=== PATIENT | male | born 1930 | race Caucasian/White ===

== ENCOUNTER → 2017-03-14 | Outpatient (CLI) | payer MEDICARE, OTHER ==
[~2017-03-14] MED LIST: ASPI-1181 PO; CANA300T PO; CLOP75TA32 PO; LISI10TA7 PO; NEBI5TAB8 PO; PRAV20TA4 PO; SITA100T12 PO
== END | disposition home or self-care (01) ==
LOC: RAH 11:43
PROVIDERS: ATTEND Family Medicine
DX: I10 Essential (primary) hypertension (principal); Z95.2 Presence of prosthetic heart valve
CPT/HCPCS: 71046

== ENCOUNTER → 2018-01-01 | Outpatient (CLI) | payer OTHER | END | disposition home or self-care (01) | LOC: SHCH 10:07 | PROVIDERS: ATTEND Internal Medicine Cardiovascular Disease | DX: I10 Essential (primary) hypertension (principal); Z95.2 Presence of prosthetic heart valve; Z95.1 Presence of aortocoronary bypass graft; Z95.0 Presence of cardiac pacemaker | CPT/HCPCS: 93306 ==

== ENCOUNTER → 2018-01-16 | Outpatient (CLI) | payer OTHER | END | disposition home or self-care (01) | LOC: SHCH 10:08 | PROVIDERS: ATTEND Internal Medicine Cardiovascular Disease | DX: I65.23 Occlusion and stenosis of bilateral carotid arteries (principal); I25.10 Atherosclerotic heart disease of native coronary artery without angina pectoris; Z72.89 Other problems related to lifestyle | CPT/HCPCS: 93880 ==

== ENCOUNTER → 2019-03-11 | Outpatient (CLI) | payer OTHER | END | disposition home or self-care (01) | LOC: SHCH 07:48 | PROVIDERS: ATTEND Internal Medicine Cardiovascular Disease | DX: I35.0 Nonrheumatic aortic (valve) stenosis (principal); I65.23 Occlusion and stenosis of bilateral carotid arteries; I73.9 Peripheral vascular disease, unspecified; I10 Essential (primary) hypertension | CPT/HCPCS: 93306; 93880; 93925 ==

== ENCOUNTER 2019-08-24 15:35 | Inpatient (IN) | payer OTHER ==
[~2019-08-24] VITALS: Ht 177.8 cm; Wt 105.1 kg
[~2019-08-24 15:35] MED LIST changes: -ASPI-1181 PO; +ASPI-1443 PO
[2019-08-24 16:17] LABS: BASOPHILS % (AUTO) 0.5 % (0.0-5.0); EOSINOPHILS % (AUTO) 1.1 % (0.0-8.0); LYMPHOCYTES % (AUTO) 10.6 % (21.0-51.0); MEAN CORPUSCULAR HEMOGLOBIN 30.9 pg (27.0-33.0); MEAN CORPUSCULAR HGB CONC 31.2 g/dL (32.0-36.0); MEAN CORPUSCULAR VOLUME 98.9 fL (79-99); MONOCYTES % (AUTO) 9.1 % (3.0-13.0); NEUTROPHILS % (AUTO) 78.3 % (40.0-77.0); PLATELET COUNT (AUTO) 264 K/uL (130-400); RED BLOOD CELL COUNT(AUTO) 1.75 MIL/uL (4.50-6.20); WHITE BLOOD COUNT (AUTO) 10.9 K/uL (4.8-10.8)
[2019-08-24 16:28] LABS: CREATININE 2.6 mg/dL (0.5-1.5)
[2019-08-24 16:32] LABS: ALBUMIN 3.1 g/dL (3.5-5.0); BILIRUBIN,TOTAL 0.2 mg/dL (0.2-1.0); TOTAL PROTEIN, SERUM 6.1 g/dL (6.0-8.3)
[2019-08-24 16:38] LABS: HEMATOCRIT 17.3 % (42-54)
[2019-08-24 18:40] LABS: INR 1.05 (0.85-1.15); PARTIAL THROMBOPLASTIN TIME 23.1 SEC (26.3-35.5); PROTHROMBIN TIME 11.3 SEC (9.6-11.6)
[2019-08-24 19:21] LABS: % IRON SATURATION 5.1 % (30-44)
[2019-08-24 19:28] LABS: RETICULOCYTE % (AUTO) 4.85 % (0.42-2.23)
[2019-08-25] VITALS (8 sets, daily range): BP systolic 101–132; BP diastolic 40–66
[2019-08-25] MEDS: SODIUM CHLORIDE 0.9% 1000ML 1,000 ML IV SCH ×2 (00:53→22:07)
[2019-08-25] MEDS: FUROSEMIDE 10 MG/ML 2ML VIAL IVP SCH ×2 (00:53→04:00)
[2019-08-25] MEDS: FAMOTIDINE/PF 20 MG/2 ML VIAL IV SCH ×2 (00:56→22:07)
--- NOTE | 2019-08-25 00:57 | NUR ---
blood transfusion started to administer the 2nd bag of prbc with witness MORAIMA Barber. instructed pt to inform as soon as possible any untoward blood transfusion reaction such as difficulty breathing, congestion, chest pain, itchiness, rashes, etc. pt denied any dizziness, chest pain, headache nor difficulty of breathing nor any pain. close monitoring
--- NOTE | 2019-08-25 05:30 | NUR ---
COMPLETED BLOOD TRANSFUSION NO UNTOWARD BLOOD TRANSFUSION REACTION NOTED. PT DENIED ANY CHEST PAIN NOR SOB NOT ITCHINESS NOR RASHES NOR ANY OTHER PAIN
[2019-08-25] MEDS ORDERED: FUROSEMIDE 10 MG/ML 2ML VIAL ONE (06:13)
--- NOTE | 2019-08-25 07:00 | NUR ---
refused PATIENT REFUSED TO GET BLOOD DRAWN DESPITE THOROUGH EXPLANATION OF ITS IMPORTANCE TO KNOW THE EFFECTIVENESS OF 2 UNITS BLOOD TRANSFUSION. HOWEVER PT STIL REFUSED. PATIENT STARTED TO GET OUT OF BED FALL RISK PRECAUTION! PT REFUSED TO SIGN REFUSAL FORM IN REFUSING BLOOD DRAWN. INFORMED CHARGED NURSE JOALNTA ABOUT RISK FOR FALL FOR PATIENT, NON COMPLIANCE. INCOMING DAYSHIFT NURSE PAVEL STAYED FOR A WHILE INSIDE PATIENT'S ROOM.
[2019-08-25] MEDS ORDERED: NEBI5TAB8 PO (07:43)
--- NOTE | 2019-08-25 07:45 | NUR ---
REFUSED pt refused blood draw after blood transfusion.pt sitting on edge of bed ,cursing at staff and combative Addendum: 08/25/19 at 0825 by PAVEL BERG RN RN Amended: Links added.
[2019-08-25] MEDS ORDERED: TRAM50TA4 PO (07:48)
[2019-08-25] MEDS ORDERED: ASPI-1005 PO (07:51)
[2019-08-25] MEDS ORDERED: ACET-66 PO (07:51)
[2019-08-25] MEDS ORDERED: LEVO500T89 PO (07:58)
[2019-08-25 12:14] LABS: BASOPHILS % (AUTO) 0.5 % (0.0-5.0); EOSINOPHILS % (AUTO) 1.1 % (0.0-8.0); HEMATOCRIT 25.3 % (42-54); LYMPHOCYTES % (AUTO) 7.9 % (21.0-51.0); MEAN CORPUSCULAR HEMOGLOBIN 31.3 pg (27.0-33.0); MEAN CORPUSCULAR HGB CONC 33.2 g/dL (32.0-36.0); MEAN CORPUSCULAR VOLUME 94.4 fL (79-99); MONOCYTES % (AUTO) 8.4 % (3.0-13.0); NEUTROPHILS % (AUTO) 81.5 % (40.0-77.0); NUCLEATED RED BLOOD CELLS 0.3 % (0.0-0.19); PLATELET COUNT (AUTO) 288 K/uL (130-400); RED BLOOD CELL COUNT(AUTO) 2.68 MIL/uL (4.50-6.20); RED CELL DISTRIBUTION WIDTH 14.3 % (11.0-15.5); WHITE BLOOD COUNT (AUTO) 11.4 K/uL (4.8-10.8)
[2019-08-25 12:22] LABS: CREATININE 2.6 mg/dL (0.5-1.5); POTASSIUM 4.2 mmol/L (3.5-5.1)
[2019-08-25 12:23] LABS: INR 1.05 (0.85-1.15); PROTHROMBIN TIME 11.3 SEC (9.6-11.6)
--- NOTE | 2019-08-25 19:45 | NUR ---
CM SPOKE WITH PATIENT ABOUT DISCHARGE PLANNING STATES LIVES WITH SPOUSE, WHO IS '90 AND MEAN AND HAS TROUBLE WITH STAIRS' STATES USES A CANE, A WALKER, AND HAS TROUBLE GETTING AROUNF' STATES 3 STEP TO HOME, [facility]AES NO MONITOR TECHNICIAN OR PROVIDER SERVICES. PERSMIION TO CALL SPOUSE TO DISCUSS PLACMENT/REHAB, BUT STATES ONLY WNATS TO GO HOME CALL TO SPOUSE, CONFIRMED ALL THAT PATIENT TOLD CM EXCEPT THAT MOBILITY IS MUCH WORSEP ' I CAN'T GET HI IN THE CAR' AND THAT HE HAS MD APPOINTMENT HE CANNOT GET TO. OFFERED SNF, SPOUSE UPSET AND DECLINED. LALED LILLIAN AND SAID SHE WOULD THINK ABOUT IT. WILL FOLLOW UP IN AM Addendum: 08/25/19 at 1948 by LINDY GE RN CM Amended: Links added.
--- NOTE | 2019-08-25 21:04 | NUR ---
Pt agressive and combative. Informed Dr. Amado thru text with an order to give Geodon 10 mg IM now and starting tomorrow (08/26/19): Seroquel 50 mg po QPM.
[2019-08-25] MEDS ORDERED: ZIPRASIDONE MESYLATE 20 MG/VIAL IM SCH (21:15)
[2019-08-26] VITALS (25 sets, daily range): BP systolic 98–161; BP diastolic 45–69
[2019-08-26 05:33] LABS: BASOPHILS % (AUTO) 0.5 % (0.0-5.0); EOSINOPHILS % (AUTO) 1.8 % (0.0-8.0); HEMATOCRIT 24.4 % (42-54); LYMPHOCYTES % (AUTO) 7.7 % (21.0-51.0); MEAN CORPUSCULAR HEMOGLOBIN 30.4 pg (27.0-33.0); MEAN CORPUSCULAR HGB CONC 32.4 g/dL (32.0-36.0); MEAN CORPUSCULAR VOLUME 93.8 fL (79-99); MONOCYTES % (AUTO) 10.5 % (3.0-13.0); NUCLEATED RED BLOOD CELLS 0.2 % (0.0-0.19); PLATELET COUNT (AUTO) 284 K/uL (130-400); RED CELL DISTRIBUTION WIDTH 14.3 % (11.0-15.5); WHITE BLOOD COUNT (AUTO) 12.9 K/uL (4.8-10.8)
[2019-08-26 05:52] LABS: ALBUMIN 3.1 g/dL (3.5-5.0); BILIRUBIN,TOTAL 0.4 mg/dL (0.2-1.0); CREATININE 2.3 mg/dL (0.5-1.5)
--- NOTE | 2019-08-26 07:30 | NUR ---
NPO FOR EGD THIS AM, SPOUSE AT BEDSIDE AND ALSO IS ANXIOUS AND UPSET, WANTS PT. TO GO FOR PROCEDURE NOW.
--- NOTE | 2019-08-26 08:00 | NUR ---
SITTER IN PLACE ,PT. CONFUSED, AGGRESSIVE, COMBATIVE AND TRYING TO CLIMB OUT OF BED.
--- NOTE | 2019-08-26 09:45 | NUR ---
PT. CONFUSED, COMBATIVE AND AGGRESSIVE, CALLED DR. DEVRIES CELL # AND OFFICE # WITH NO RESPOND.
--- NOTE | 2019-08-26 11:30 | NUR ---
TO GI DEPT. NOW FOR EGD, CONSENT SIGNED PER GERIATRIC CARE MANAGER.
[2019-08-26] MEDS ORDERED: PROPOFOL 10 MG/ML 20ML VIAL IV ONE (12:21)
--- NOTE | 2019-08-26 13:30 | NUR ---
BACK FROM GI. LAB, BP 101/69, HR 79, RR 18, T.98,RESTLESS , PRE PROCEDURE ORDERS RESUMED, ALSO HAS BEEN SCHEDULED FOR COLONOSCOPY IN AM.
[2019-08-26] MEDS ORDERED: LORAZEPAM 2 MG/ML 1 ML VIAL IVP PRN (14:30)
[2019-08-26] MEDS: SODIUM CHLORIDE 0.9% 1000ML 1,000 ML IV SCH ×2 (16:11→20:06)
[2019-08-26] MEDS ORDERED: PEG 3350/NA SULF,BICARB,CL/KCL 4000 ML SOLN PO SCH (17:00)
--- NOTE | 2019-08-26 17:00 | NUR ---
SEVERAL ATTEMPTS MADE TO GET PT. TO TAKE GOLYTELY PO BUT WOULD START COUGHING AND GAGING. THEN TWICE TRIED TO PLACE A 14FR. NG WITH NO LUCK, PT. BECAME VERY AGGRESSIVE.
--- NOTE | 2019-08-26 17:24 | NUR ---
1708 RECEIVED TELEPHONE CONSENT FROM SPOUSE DANIEL [phone], I FAXED IM LETTER TO [phone] AND PLACED IN CHART UNDER CONSENT TAB
--- NOTE | 2019-08-26 19:36 | NUR ---
CALLED [facility] TO GET A PHONE CONSENT FOR COLONOSCOPY. NOT AVAILABLE PER PHONE MESSAGE.
[2019-08-26] MEDS: FAMOTIDINE/PF 20 MG/2 ML VIAL IV SCH (20:19)
[2019-08-26] MEDS: QUETIAPINE FUMARATE 25 MG TAB PO SCH (20:20)
--- NOTE | 2019-08-26 20:20 | NUR ---
MEDS SHIFT ASSESSMENT DONE, PLEASE REFER TO CHART. INSERTED NGT TO LEFT NARE AND ASKED MORAIMA FRANKLIN, TO VERIFY PLACEMENT. NGT NOT IN RIGHT PLACE. RE-INSERTED NGT AND ASKED MORAIMA RAHMAN TO VERIFY PLACEMENT. NGT IN PLACE. DUE PO MEDS GIVEN VIA NGT. GOLYTELY INFUSED VIA NGT. KEPT HOB ELEVATED. KEPT MITTENS ON. SITTER BY PT'S DOOR KEEPING CLOSE WATCH. Addendum: 08/27/19 at 0347 by LINNETTE STEWART RN RN Amended: Links added.
--- NOTE | 2019-08-26 22:00 | NUR ---
GI PREP PT STILL FAIRLY ASLEEP. NOTED TO BE HAVING SECRETIONS IN HIS THROAT BUT UNABLE TO SUCTION THROUGH HIS MOUTH. CALLED JOSIAH,RT, FOR SUCTIONING. O2 2LPM VIA NC PLACED FOR RESPIRATORY HELP. CONTINUED GOLYTELY INFUSION VIA NGT. KEPT HOB ELEVATED. NO BM YET AT THIS TIME.
[2019-08-27] VITALS: BP 122/41
--- NOTE | 2019-08-27 01:30 | NUR ---
NPO GOLYTELY INFUSION VIA NGT STOPPED PT'S ABDOMEN IS ALREADY DISTENDED AND IS HAVING HEAVY BREATHING AND NO BM STILL UP TO THIS TIME. WILL MONITOR CLOSELY. SITTER BY PT'S DOOR.
[2019-08-27] MEDS: SODIUM CHLORIDE 0.9% 1000ML 1,000 ML IV SCH ×3 (03:58→20:14)
[2019-08-27 04:00] VITALS: BP 132/50
--- NOTE | 2019-08-27 04:00 | NUR ---
BM PT HAS A BM AND IS NOT CLEAR. SITTER GAVE PT A BED BATH. TOLERATED ACTIVITY WELL. KEPT NPO. WILL MONITOR PT.
[2019-08-27 04:18] LABS: BASOPHILS % (AUTO) 0.5 % (0.0-5.0); EOSINOPHILS % (AUTO) 3.1 % (0.0-8.0); HEMATOCRIT 23.6 % (42-54); LYMPHOCYTES % (AUTO) 8.2 % (21.0-51.0); MEAN CORPUSCULAR HEMOGLOBIN 29.8 pg (27.0-33.0); MEAN CORPUSCULAR HGB CONC 30.9 g/dL (32.0-36.0); MEAN CORPUSCULAR VOLUME 96.3 fL (79-99); MONOCYTES % (AUTO) 10.8 % (3.0-13.0); PLATELET COUNT (AUTO) 264 K/uL (130-400); RED BLOOD CELL COUNT(AUTO) 2.45 MIL/uL (4.50-6.20); RED CELL DISTRIBUTION WIDTH 14.6 % (11.0-15.5); WHITE BLOOD COUNT (AUTO) 10.7 K/uL (4.8-10.8)
[2019-08-27 04:36] LABS: ALBUMIN 2.8 g/dL (3.5-5.0); BILIRUBIN,TOTAL 0.5 mg/dL (0.2-1.0); CREATININE 1.6 mg/dL (0.5-1.5); TOTAL PROTEIN, SERUM 5.5 g/dL (6.0-8.3)
--- NOTE | 2019-08-27 04:45 | NUR ---
CONSENT PT'S SPOUSE ROBIN CALLED AND TELEPHONE CONSENT FOR COLONOSCOPY TAKEN, WITNESSED BY MORAIMA BUNDY. CONSENT IN CHART.
--- NOTE | 2019-08-27 06:15 | NUR ---
ENEMA PT STILL HAS NO BM SINCE THE LAST EPISODE AT 4AM. TAP WATER ENEMA DONE WITH SITTER ASSISTING. NOTED SOLID HARD STOOLS EVACUATED WITH ENEMA BUT PT IS NOT CLEAN AFTER CLEANSING. ENDORSING TO AM SHIFT TO REPORT TO GI LAB AND GI MD OF PT STILL NOT CLEAN EVEN AFTER GI PREP.
[2019-08-27 08:30] VITALS: BP 130/45
[2019-08-27 11:30] VITALS: BP 149/51
[2019-08-27] MEDS ORDERED: MAGNESIUM CITRATE 296 ML SOLUTION NG SCH (13:00)
[2019-08-27] MEDS ORDERED: SODIUM CHLORIDE 0.9% 250 ML IV ONE (14:19)
[2019-08-27] MEDS ORDERED: PEG 3350/NA SULF,BICARB,CL/KCL 4000 ML SOLN NG SCH (17:00)
[2019-08-27 18:08] VITALS: BP 148/62
[2019-08-27 20:00] VITALS: BP 148/56
[2019-08-27] MEDS: FAMOTIDINE/PF 20 MG/2 ML VIAL IV SCH (20:14)
[2019-08-27] MEDS: QUETIAPINE FUMARATE 25 MG TAB PO SCH (20:14)
--- NOTE | 2019-08-27 20:15 | NUR ---
MEDS SHIFT ASSESSMENT DONE, PLEASE REFER TO CHART. DUE MEDS ADMINISTERED, TOLERATE DWELL. NGT PLACEMENT VERIFIED AND DUE PO MEDS ADMINISTERED VIA NGT. GOLYTELY INFUSED VIA NGT ON A DRIP PER PT'S TOLERANCE. PIV IS LEAKING, DISCONTINUED WITH CATHETER INTACT. TRIED TO RE-INSERT PIV BUT UNABLE. ASKED MORAIMA PALOMARES TO TRY RE-INSERTION BUT STILL UNABLE. Addendum: 08/28/19 at 0450 by LINNETTE STEWART RN RN Amended: Links added.
--- NOTE | 2019-08-27 23:50 | NUR ---
MARIAM PEACE RN, WAS ABLE TO RE-INSERT 2 PIV ONE ON EACH UPPER ARMS. IVF INFUSION CONTINUED. GOLYTELY INFUSION VIA NGT COMPLETED. PLACED PT NPO. PCP AND SITTER CHANGED PT'S DIAPER AND STOOL IS STILL NOT CLEAR. WILL MONITOR OUTPUT. KEPT COMFORTABLE WITH HOB ELEVATED. Addendum: 08/28/19 at 0454 by LINNETTE STEWART RN RN Amended: Links added.
[2019-08-28] VITALS (21 sets, daily range): BP systolic 107–154; BP diastolic 46–71
--- NOTE | 2019-08-28 02:00 | NUR ---
ROUNDS PT RESTING WELL, FAIRLY ASLEEP. KEPT UNDISTURBED FOR NOW. WILL MONITOR PT. SITTER KEEPING CLOSE WATCH.
[2019-08-28 04:03] LABS: BASOPHILS % (AUTO) 0.5 % (0.0-5.0); EOSINOPHILS % (AUTO) 1.5 % (0.0-8.0); HEMATOCRIT 25.7 % (42-54); LYMPHOCYTES % (AUTO) 6.4 % (21.0-51.0); MEAN CORPUSCULAR HEMOGLOBIN 29.2 pg (27.0-33.0); MEAN CORPUSCULAR HGB CONC 31.1 g/dL (32.0-36.0); MEAN CORPUSCULAR VOLUME 93.8 fL (79-99); MONOCYTES % (AUTO) 10.3 % (3.0-13.0); PLATELET COUNT (AUTO) 241 K/uL (130-400); RED BLOOD CELL COUNT(AUTO) 2.74 MIL/uL (4.50-6.20); RED CELL DISTRIBUTION WIDTH 15.3 % (11.0-15.5)
[2019-08-28 04:32] LABS: ALBUMIN 2.6 g/dL (3.5-5.0); BILIRUBIN,TOTAL 0.5 mg/dL (0.2-1.0); CREATININE 1.5 mg/dL (0.5-1.5); POTASSIUM 4.1 mmol/L (3.5-5.1); TOTAL PROTEIN, SERUM 5.5 g/dL (6.0-8.3)
--- NOTE | 2019-08-28 05:30 | NUR ---
ENEMA NOTED PT'S STOOLS AND STILL HAS SOME SEDIMENTS. ENEMA DONE UNTIL OUTPUT IS CLEAR. CLEANSED PT AND CHANGED WET LINEN. KEPT WARM AND DRY IN BED. MAINTAINED NPO STATUS FOR GI PROCEDURE TODAY. FOR MORE CARE.
[2019-08-28] MEDS: SODIUM CHLORIDE 0.9% 1000ML 1,000 ML IV SCH ×3 (06:59→20:30)
[2019-08-28] MEDS ORDERED: PROPOFOL 10 MG/ML 20ML VIAL IV ONE (10:34)
[2019-08-28] MEDS ORDERED: LIDOCAINE HCL 1% 20 ML VIAL ONE (10:35)
[2019-08-28] MEDS ORDERED: PHENYLEPHRINE HCL 10 MG/ML 1ML VIAL IV ONE (10:47)
[2019-08-28] MEDS ORDERED: EPINEPHRINE 1 MG/ML AMPULE ONE (10:47)
--- NOTE | 2019-08-28 17:30 | NUR ---
Discussed dispo with MD today - Needs placement -- and covid test covid test ordered by K[facility] / advised primary AND discharge planner. KIKO has not spoken to spouse about placment today. Patient is still on a one to one- [facility] NEED ONE TO ONE OFF FOR 24 HRS PRIOR TO SNF SUBMITTING FOR AUTH. Kiko does not know which facility family will want Addendum: 08/28/19 at 1733 by LINDY GE RN CM Amended: Links added.
[2019-08-28] MEDS: QUETIAPINE FUMARATE 25 MG TAB PO SCH (20:29)
[2019-08-28] MEDS: FAMOTIDINE/PF 20 MG/2 ML VIAL IV SCH (20:30)
--- NOTE | 2019-08-28 20:30 | NUR ---
MEDS SHIFT ASSESSMENT DONE, PLEASE REFER TO CHART. DUE MEDS ADMINISTERED, NEW IVF BAG HUNG. PO MEDS GIVEN WITH ICE CREAM AND PT TOLERATED PO WELL. PT IS STILL CONFUSED BUT TRIED TO RE-ORIENT TO PERSON, TIME AND SPACE. WILL MONITOR CLOSELY. SITTER BY PT'S DOOR. Addendum: 08/28/19 at 2168 by LINNETTE STEWART RN RN Amended: Links added.
--- NOTE | 2019-08-28 22:00 | NUR ---
ROUNDS PT RESTING WELL, FAIRLY ASLEEP. KEPT COMFORTABLE IN BED WITH HOB ELEVATED. MAINTAINED ON O2. SITTER WATCHING CLOSELY. WILL MONITOR PT.
--- NOTE | 2019-08-29 02:00 | NUR ---
ROUNDS PT SLEEPS ON AND OFF. NO DISTRESS NOTED. PT TRIES TO REMOVE MITTENS WHEN AWAKE AND TRIES TO MOVE IN BED. SITTER KEEPING CLOSE WATCH.
[2019-08-29 03:20] VITALS: BP 147/59
--- NOTE | 2019-08-29 05:13 | NUR ---
ROUNDS PT WAS JUST CHANGED AND RE-POSITIONED BY [facility]. ALTERNATING PERIODS OF SLEEP AND PERIODS OF WAKEFULNESS WITH TRYING TO MOVE IN BED. FOR MORE CARE.
[2019-08-29] MEDS: SODIUM CHLORIDE 0.9% 1000ML 1,000 ML IV SCH ×2 (06:27→18:46)
[2019-08-29 08:00] VITALS: BP 164/60
[2019-08-29 12:00] VITALS: BP 170/90
[2019-08-29] MEDS: HYDRALAZINE HCL 20 MG/ML VIAL IV PRN (12:21)
[2019-08-29 16:00] VITALS: BP 176/68
[2019-08-29 19:45] VITALS: BP 156/49
[2019-08-29] MEDS: FAMOTIDINE/PF 20 MG/2 ML VIAL IV SCH (20:29)
[2019-08-29] MEDS: QUETIAPINE FUMARATE 25 MG TAB PO SCH (20:33)
[2019-08-29 23:05] VITALS: BP 156/88
[2019-08-30] VITALS (7 sets, daily range): BP systolic 98–176; BP diastolic 48–68
[2019-08-30] MEDS: SODIUM CHLORIDE 0.9% 1000ML 1,000 ML IV SCH ×2 (06:41→19:02)
[2019-08-30] MEDS: BYSTOLIC 5 MG PO SCH (09:00)
[2019-08-30] MEDS: FAMOTIDINE/PF 20 MG/2 ML VIAL IV SCH (20:51)
[2019-08-30] MEDS: QUETIAPINE FUMARATE 25 MG TAB PO SCH (20:52)
[2019-08-30] MEDS: HYDRALAZINE HCL 20 MG/ML VIAL IV PRN (20:52)
[2019-08-31] VITALS (7 sets, daily range): BP systolic 130–179; BP diastolic 42–68
[2019-08-31] MEDS: HYDRALAZINE HCL 20 MG/ML VIAL IV PRN (04:53)
[2019-08-31] MEDS: SODIUM CHLORIDE 0.9% 1000ML 1,000 ML IV SCH ×2 (05:21→19:09)
--- NOTE | 2019-08-31 10:00 | NUR ---
DYSPHAGIA EVAL COMPLETED. +S/S OF ASPIRATION WITH THIN AND NECTAR-THICK LIQUIDS. RECOMMEND PUREED, HONEY-THICK LIQUIDS; PILLS CRUSHED WITH APPLESAUCE. HAND CLERICAL VERIFIER COORDINATED CARE WITH NURSE MANRIQUEZ. DIET RECOMMENDATIONS WRITTEN ON Pt'S WHITEBOARD. HAND CLERICAL VERIFIER WILL CONTINUE TO FOLLOW Pt. Addendum: 08/31/19 at 1243 by CHRISTINE GREGORY [facility] Amended: Links added.
[2019-08-31] MEDS: BYSTOLIC 5 MG PO SCH (11:12)
[2019-08-31] MEDS: FAMOTIDINE/PF 20 MG/2 ML VIAL IV SCH (21:52)
[2019-08-31] MEDS: QUETIAPINE FUMARATE 25 MG TAB PO SCH (21:52)
[2019-09-01 04:00] VITALS: BP 150/62
[2019-09-01 06:04] LABS: BASOPHILS % (AUTO) 0.5 % (0.0-5.0); HEMATOCRIT 27.4 % (42-54); LYMPHOCYTES % (AUTO) 9.1 % (21.0-51.0); MEAN CORPUSCULAR HEMOGLOBIN 29.3 pg (27.0-33.0); MEAN CORPUSCULAR VOLUME 94.5 fL (79-99); NEUTROPHILS % (AUTO) 74.1 % (40.0-77.0); PLATELET COUNT (AUTO) 173 K/uL (130-400); RED CELL DISTRIBUTION WIDTH 14.6 % (11.0-15.5); WHITE BLOOD COUNT (AUTO) 9.4 K/uL (4.8-10.8)
[2019-09-01] MEDS: SODIUM CHLORIDE 0.9% 1000ML 1,000 ML IV SCH ×2 (06:08→18:11)
[2019-09-01 06:28] LABS: ALBUMIN 2.2 g/dL (3.5-5.0); BILIRUBIN,TOTAL 0.5 mg/dL (0.2-1.0); CREATININE 1.3 mg/dL (0.5-1.5); POTASSIUM 3.3 mmol/L (3.5-5.1); TOTAL PROTEIN, SERUM 5.2 g/dL (6.0-8.3)
[2019-09-01 07:45] VITALS: BP 142/55
--- NOTE | 2019-09-01 11:00 | NUR ---
TREATMENT COMPLETED. Pt SEATED AT 90 DEGREES IN BED. PT EASILY AROUSED AND COOPERATIVE DURING THE SESSION. Pt CURRENTLY ON PUREED, HONEY-THICK LIQUIDS. THERAPEUTIC TRIALS OF HONEY-THICK LIQUIDS PROVIDED (TOTAL OF 4 OZ ADMINISTERED VIA TSP). NO OVERT S/S OF ASPIRATION PRESENT AT THE TIME OF THE SESSION. ROOFER ASSISTANT COORDINATED WITH NURSE MANRIQUEZ AND WESLEY/CHAITANYA AGUILERA. INORGANIC CHEMIST REPORTS COUGHING DURING BREAKFAST. ROOFER ASSISTANT REVIEWED/EDUCATED ON POSITIONING, AND MENTAL ALERTNESS STATUS DURING P.O. FOR SAFE SWALLOWING. ALL QUESTIONS ANSWERED AT THIS TIME. ROOFER ASSISTANT WILL CONTINUE TO FOLLOW Pt. Addendum: 09/01/19 at [address] [facility] Amended: Links added.
[2019-09-01] MEDS: BYSTOLIC 5 MG PO SCH (11:02)
[2019-09-01 11:15] VITALS: BP 186/67
[2019-09-01 16:00] VITALS: BP 169/70
--- NOTE | 2019-09-01 16:10 | NUR ---
CM Note: [facility] pending approval CM spoke to pt's spouse Krissy Asencio, spouse requested short term rehab post hospitalization, telephone consent obtained ANTOINETTE for [facility]. Spoke to Dr Amado, agreeable w/plans, order entered. Faxed order, clinicals, PASRR, PT, and Covid Transfer Form to [facility], confirmation received. Spoke to Deisi schafer dcp once approved/tomorrow. Will arrange EMS once placement secured. Primary nurse aware. CM to cont to follow up.
[2019-09-01] MEDS ORDERED: POTASSIUM CHLORIDE 10% ELIXIR 20 MEQ/15 ML UDCUP PO PRN (16:15)
[2019-09-01] MEDS ORDERED: LIDOCAINE HCL-MPF 1% 2ML VIAL IV PRN ×2 (16:15)
[2019-09-01] MEDS ORDERED: POTASSIUM CHLORIDE 20MEQ/100ML 100 ML IV PRN ×2 (16:15)
[2019-09-01] MEDS: POTASSIUM CHLORIDE 20 MEQ ERTAB PO PRN ×2 (18:19→21:39)
[2019-09-01 20:40] VITALS: BP 128/64
[2019-09-01] MEDS ORDERED: QUETIAPINE FUMARATE 25 MG TAB PO SCH (21:00)
[2019-09-01] MEDS: FAMOTIDINE/PF 20 MG/2 ML VIAL IV SCH ×2 (21:37→21:40)
[2019-09-02] MEDS: HYDRALAZINE HCL 20 MG/ML VIAL IV PRN (00:26)
[2019-09-02] MEDS: POTASSIUM CHLORIDE 20 MEQ ERTAB PO PRN (00:36)
[2019-09-02 01:07] VITALS: BP 175/67
[2019-09-02 01:08] VITALS: BP 146/50
[2019-09-02 04:08] VITALS: BP 155/62
[2019-09-02 08:00] VITALS: BP_SYST 156; BP_SYST 168; BP_DIAS 54; BP_DIAS 62
--- NOTE | 2019-09-02 10:52 | NUR ---
FOLLOW UP COMPLETED. Pt WITH CURRENT RECOMMENDATIONS FOR PUREED, HONEY-THICK LIQUIDS PER RECOMMENDATIONS ON INITIAL EVALUATION 08/30. Pt WITH CURRENT DIET OF NECTAR-THICK LIQUIDS. RESIDENTIAL ADVISOR COORDINATED WITH NURSE ZHAO FOR CHANGE IN SYSTEM TO HONEY-THICK LIQUIDS PER RESIDENTIAL ADVISOR RECOMMENDATIONS. Pt TOLERATING HONEY-THICK LIQUIDS. RECOMMEND CONTINUED PUREED, HONEY-THICK LIQUIDS; PILL CRUSHED WITH APPLESAUCE. RESIDENTIAL ADVISOR WILL CONTINUE TO FOLLOW Pt. Addendum: 09/02/19 at 1055 by CHRISTINE GREGORY, [facility] Amended: Links added.
[2019-09-02 12:00] VITALS: BP 155/72
--- NOTE | 2019-09-02 12:13 | NUR ---
KIKO Note: [facility] pending approval CM spoke to [facility] [place]/[facility], pt currently pending approval. EMS arranged and faxed for today in case pt received approval. Primary nurse aware. CM to cont to follow up.
--- NOTE | 2019-09-02 15:00 | NUR ---
CM Note: [facility] approval CM spoke to [facility] [place]/[facility], pt has approval. EMS arranged and faxed for today, primary nurse to call [facility] once pt ready to DC. Primary nurse aware. CM to cont to follow up.
[2019-09-02 16:00] VITALS: BP 168/62
== END 2019-09-02 18:35 | DRG 378 ==
LOC: EDH 15:35 → EDHIP 20:20 → OBSVTOIN 20:20 → 3BH 22:47
PROVIDERS: ADMIT Family Medicine; ATTEND Family Medicine
PROC: 30233N1 Transfusion of Nonautologous Red Blood Cells into Peripheral Vein, Percutaneous Approach (ICD-10-PCS; 2019-08-24)
PROC: 0DB98ZX Excision of Duodenum, Via Natural or Artificial Opening Endoscopic, Diagnostic (ICD-10-PCS; principal; 2019-08-26)
PROC: 0DB68ZX Excision of Stomach, Via Natural or Artificial Opening Endoscopic, Diagnostic (ICD-10-PCS; 2019-08-26)
PROC: 0DJD8ZZ Inspection of Lower Intestinal Tract, Via Natural or Artificial Opening Endoscopic (ICD-10-PCS; 2019-08-28)
DX: K29.71 Gastritis, unspecified, with bleeding (principal); N17.9 Acute kidney failure, unspecified; F03.91 Unspecified dementia, unspecified severity, with behavioral disturbance; K31.89 Other diseases of stomach and duodenum; N18.9 Chronic kidney disease, unspecified; E11.22 Type 2 diabetes mellitus with diabetic chronic kidney disease; I12.9 Hypertensive chronic kidney disease with stage 1 through stage 4 chronic kidney disease, or unspecified chronic kidney disease; K57.30 Diverticulosis of large intestine without perforation or abscess without bleeding; E78.5 Hyperlipidemia, unspecified; I25.10 Atherosclerotic heart disease of native coronary artery without angina pectoris; G89.4 Chronic pain syndrome; D64.9 Anemia, unspecified; Z20.828 Contact with and (suspected) exposure to other viral communicable diseases; Z79.899 Other long term (current) drug therapy
CPT/HCPCS: 36415; 36430; 43239; 45378; 71045; 78278; 80048; 80053; 82270; 82550; 82607; 82728; 82948; 83735; 84132; 84484; 85025; 85610; 85730; 86850; 86900; 86901; 86922; 88305; 88342; 92526; 92610; 93005; 97039; 99291; A4606; A9512; G0378; J0171; J0360; J1940; J2060; J2370; J2704; J3486; J3490; J7030; J7050; P9016; U0003

== ENCOUNTER → 2019-11-03 | Outpatient (CLI) | payer OTHER ==
[~2019-11-03] MED LIST changes: +ASPI-1005 PO; +LEVO500T89 PO; -LISI10TA7 PO; +TRAM50TA4 PO
== END | disposition home or self-care (01) ==
LOC: RAH 10:38
PROVIDERS: ATTEND Family Medicine
DX: R31.9 Hematuria, unspecified (principal)
CPT/HCPCS: 76857

== ENCOUNTER → 2020-03-28 | Outpatient (CLI) | payer OTHER | END | disposition home or self-care (01) | LOC: OIH 10:05 | PROVIDERS: ATTEND Family Medicine | DX: Z00.00 Encounter for general adult medical examination without abnormal findings (principal); R04.2 Hemoptysis; Z95.2 Presence of prosthetic heart valve | CPT/HCPCS: 71046 ==